=== PATIENT | female | born 1995 | race Caucasian/White ===

== ENCOUNTER 2023-03-18 10:17 | Emergency (ER) | payer SELFPAY ==
[2023-03-18] VITALS (14 sets, daily range): BP systolic 108–140; BP diastolic 65–93; PULSE 68–98; RESP 11–20; O2SAT 97–100
--- NOTE | 2023-03-18 11:08 | ED.NAVMDI ---
HPI - Nausea/Vomiting/Diarrhea General Chief complaint: Nausea/Vomiting/Diarrhea Stated complaint: 12 weeks -vomiting 40 hours Time Seen by Provider: 03/18/23 10:30 Source: patient Mode of arrival: ambulatory Limitations: no limitations History of Present Illness HPI Narrative: Patient is a 28 y/o female who presents to the ED with c/o N/V. Patient reports having persistent nausea and vomiting for the last 36 hours. She states she is unable to keep down any food or drink. She feels very dehydrated and slightly dizzy/lightheaded, intermittent headaches. She is and currently 12 weeks gestation. She sees Viridiana Felix with [facility]. She has had confirmed IUP at 8 weeks. Patient denies any abdominal pain, vaginal bleeding, vision changes, diarrhea, constipation, dysuria, hematuria. Related Data Allergies Allergy/AdvReac Type Severity Reaction Status Date / Time No Known Allergies Allergy Verified 03/18/23 10:17 Review of Systems Review of Systems: CONSTITUTIONAL: Denies fever, chills, or sweats. EYES: Denies visual changes. CARDIOVASCULAR: Denies chest pain. RESPIRATORY: Denies dyspnea. GASTROINTESTINAL: See HPI. GENITOURINARY: Denies vaginal bleeding, dysuria or hematuria. SKIN: Denies rash or itching. MUSCULOSKELETAL: Denies back pain, joint pain, or myalgia. NEUROLOGIC: See HPI. All systems reviewed & are unremarkable except as noted in HPI and below Exam Narrative: GENERAL: Well appearing, obese with BMI of 32, non-toxic, in no acute distress. HEAD: Normocephalic, atraumatic. ENT: MMs dry. NECK: Supple. No adenopathy, no masses. RESPIRATORY: Airway patent, respirations nonlabored. Clear to auscultation bilaterally, no rales, rhonchi, wheezing. CARDIOVASCULAR: Regular rate and rhythm without murmurs, rubs, or gallops. Radial pulses 2+ and equal bilaterally. ABDOMINAL: Soft, no significant tenderness throughout abdomen, nondistended, no hepatosplenomegaly. Normoactive BS. MUSCULOSKELETAL: Moves all extremities. Strength/ROM intact without gross deformities. SKIN: Warm, dry, normal color. No rashes. NEURO: A&O X3. Speech clear. Cranial nerves II-XII grossly intact. Steady gait. No ataxic movements. PSYCHIATRIC: Appropriate mood and affect. Normal interaction. Course Vital Signs Vital signs: Vital Signs Pulse Rate 72 03/18/23 10:53 Blood Pressure 130/80 03/18/23 10:53 Pulse Rate 75 03/18/23 13:16 Respiratory Rate 16 03/18/23 13:16 Blood Pressure 108/72 03/18/23 13:00 Pulse Oximetry 100 03/18/23 13:16 MDM - Nausea/Vomiting/Diarrhea MDM Narrative Medical decision making narrative: Patient presented to ED with several day history of nausea, vomiting, currently 12 weeks gestation. No abdominal pain or vaginal bleeding. Vital stable. Afebrile. Bedside ultrasound utilized and visualized baby with active heart tones. CBC with minimal leukocytosis of 10.7, remainder of blood work unremarkable, normal electrolytes and kidney function. Urine appears infected with 3+ leuk esterase, 6-10 WBC, 4+ urine bacteria. Sent for culture. Patient updated on laboratory findings. She was given 2 L of fluid in the ED, as well as Reglan and dose of Ceftriaxone for UTI. She is feeling much better with supportive therapy. Able to tolerate p.o. intake. Recommended close follow-up with [employer] for further evaluation. Return precautions were discussed. Keflex sent to pharmacy. Medical Records Attestation: I reviewed the patient's medical records. Lab Data Attestation: I reviewed the patient's lab results. 03/18/23 11:08 03/18/23 11:08 Labs: Lab Results 03/18/23 Range/Units 11:08 WBC 10.7 H (4.5-10.0) K/mm3 RBC 4.80 (4.2-5.4) M/mm3 Hgb 14.7 (12.0-15.0) g/dL Hct 43.8 (37.0-47.0) % MCV 91.3 (80-100) fl MCH 30.6 (26-34) pg MCHC 33.6 (32-36) g/dl RDW 13.3 (11.5-14.5) % Plt Count 265 (150-375) k/mm3 MPV 9.5 (7.4-10.4) fl Im
[2023-03-18] MEDS: METOCLOPRAMIDE HCL INJ 10 MG/2 ML VIAL IV PUSH (11:15)
[2023-03-18] MEDS: SODIUM CHLORIDE 0.9% IV 1,000 ML 999 ML IV CONT ×2 (11:15→12:01)
[2023-03-18 11:26] LABS: Basophils Percent Auto 0.3 % (0.2-1.2); Eosinophils Percent Auto 0.2 % (0-4.4); Hematocrit 43.8 % (37.0-47.0); Hemoglobin 14.7 g/dL (12.0-15.0); Immature Granulocyte Absolute 0.05 K/mm3 (0.00-0.031); Immature Granulocyte Percent A 0.5 % (0-0.5); Lymphocytes Absolute Auto 1.57 K/mm3 (0.9-3.2); Lymphocytes Percent Auto 14.7 % (18.3-44.2); Mean Corpuscular HGB Conc 33.6 g/dl (32-36); Mean Corpuscular Hemoglobin 30.6 pg (26-34); Mean Corpuscular Volume 91.3 fl (80-100); Mean Platelet Volume 9.5 fl (7.4-10.4); Monocytes Absolute Auto 0.7 K/mm3 (0.1-0.6); Monocytes Percent Auto 6.6 % (2.6-8.5); Neutrophils Absolute Auto 8.3 K/mm3 (1.3-6.7); Neutrophils Percent Auto 77.7 % (45.5-73.1); Platelet Count Result 265 k/mm3 (150-375); Red Cell Distribution Width 13.3 % (11.5-14.5); White Blood Count 10.7 K/mm3 (4.5-10.0)
[2023-03-18 11:34] LABS: Alanine Aminotransferase 33 U/L (6-35); Albumin Level 4.4 g/dL (3.5-5.1); Alkaline Phosphatase 72 U/L (38-126); Anion Gap 9 mmol/L (8-16); Aspartate Amino Transferase 38 U/L (14-36); Bilirubin,Total 0.8 mg/dL (0.2-1.3); Blood Urea Nitrogen 7 mg/dL (7-17); Carbon Dioxide 22 mmol/L (22-30); Chloride 104 mmol/L (98-107); Estimated CRCL calculation 205 ml/min; Estimated Glomerular Filt Rate > 60; Glucose 90 mg/dL (65-110); Lipase 98 U/L (23-300); Potassium 4.1 mmol/L (3.4-5.0); Sodium 135 mmol/L (137-145)
[2023-03-18 11:35] LABS: Appearance Urine Cloudy (Clear); Bacteria Urine 4+ /hpf; Bilirubin Urine Negative (Negative); Blood Urine Negative (Negative); Color Urine Dark Yellow (Yellow); Glucose Urine UA Negative (Negative); Ketones Urine Trace mg/dL (Negative); Leukocyte Esterase Ur 3+ LEU/UL (Negative); Need Manual Microscopic Reviewed; Nitrate Urine Negative (Negative); Protein Urine Trace mg/dL (Negative); RBC Urine 0-2 /hpf (0-2); Specific Grav Ur 1.022 (1.001-1.035); Squamous Epithelial Cell Urine Many /hpf (Few); pH Urine 6.5 (5.0-9.0)
[2023-03-18 11:36] LABS: Add Urine Microscopic? YES
--- NOTE | 2023-03-18 12:01 | PC.NURSE ---
No cultures needed per LINDA garcia prior to antibiotics.
== END 2023-03-18 13:51 | disposition home or self-care (01) ==
PROVIDERS: Emergency Medicine; Emergency Provider Physician Assistant; PCP Advanced Practice Midwife
DX: O23.41 Unspecified infection of urinary tract in pregnancy, first trimester (principal); O21.9 Vomiting of pregnancy, unspecified; Z3A.12 12 weeks gestation of pregnancy
CPT/HCPCS: 36415; 80053; 81001; 83690; 85025; 87086; 87088; 96361; 96365; 96375; 99284; J0696; J2765; J7030

== ENCOUNTER 2023-03-19 21:50 | Emergency (ER) | payer SELFPAY ==
[2023-03-19 21:54] VITALS: BP 113/59; PULSE 66; RESP 16; TEMP 36.6; O2SAT 100
--- NOTE | 2023-03-19 23:44 | ED.NAVMDI ---
HPI - Nausea/Vomiting/Diarrhea General Chief complaint: Nausea/Vomiting/Diarrhea Stated complaint: vomiting Time Seen by Provider: 03/19/23 23:31 History of Present Illness HPI Narrative: 28-year-old female, who is currently 12 weeks gestation reports for evaluation of nausea and vomiting x3 days. Patient was evaluated in the emergency department yesterday for the same symptoms, diagnosed with a UTI, she received 2 L of fluids, Reglan and Rocephin with improvement of symptoms and discharged home with Keflex and Reglan. She reports today due to return of nausea and vomiting. Reports 3 episodes of vomiting today. She denies abdominal pain, urinary complaints, vaginal bleeding, fever. She reports taking 1 dose of Keflex this morning, however has not been able to take anything p.o. due to nausea. Patient states she called her MIGRATION AGENT today who sent in Zofran for her in addition to the Reglan she was discharged with yesterday. Patient reports taking Zofran and Reglan without improvement nausea. Her OBGYN with Viridiana Felix at [facility]. She had a confirmed IUP at 8 weeks. Reports her next ultrasound discussed in 3 days. Related Data Allergies Allergy/AdvReac Type Severity Reaction Status Date / Time No Known Allergies Allergy Verified 03/18/23 10:17 Review of Systems Review of Systems: CONSTITUTIONAL: Denies fever, chills EYES: Denies visual changes, redness, or discharge. ENT: Denies rhinorrhea, congestion, sore throat, or otalgia. CARDIOVASCULAR: Denies chest pain, palpitations, or edema. RESPIRATORY: Denies cough or dyspnea. GASTROINTESTINAL: See HPI GENITOURINARY: Denies dysuria or hematuria. SKIN: Denies rash or itching. MUSCULOSKELETAL: Denies back pain, joint pain, or myalgia. NEUROLOGIC: Denies headache, numbness, dizziness, or weakness. PSYCHIATRIC: Denies anxiety or depression. Exam Narrative: GENERAL: Well-appearing, in no acute distress. HEAD: Normocephalic NECK: Supple. CHEST: No respiratory distress. Clear to auscultation, no adventitious breath sounds. HEART: Regular rate and rhythm. No murmur heard. Normal peripheral pulses. ABDOMEN: Soft, nontender, normal active bowel sounds. No guarding or rigidity. No CVA tenderness EXTREMITIES: Normal range of motion. No edema. SKIN: Warm, dry, no rash. NEURO: No focal deficits. Alert and oriented x3. PSYCH: Normal mood and affect. Course Vital Signs Vital signs: Vital Signs Temperature 98 F 03/19/23 21:54 Pulse Rate 66 03/19/23 21:54 Respiratory Rate 16 03/19/23 21:54 Blood Pressure 113/59 L 03/19/23 21:54 Pulse Oximetry 100 03/19/23 21:54 Oxygen Delivery Room Air 03/19/23 21:54 Temperature 98 F 03/19/23 21:54 Pulse Rate 78 03/20/23 02:01 Respiratory Rate 16 03/20/23 02:01 Blood Pressure 122/79 03/20/23 02:01 Pulse Oximetry 100 03/20/23 02:01 Oxygen Delivery Room Air 03/19/23 21:54 MDM - Nausea/Vomiting/Diarrhea MDM Narrative Medical decision making narrative: 28-year-old female, G1, P0 who is currently 12 weeks gestation reports for evaluation of nausea and vomiting for 3 days. Patient was seen in the ED yesterday, diagnosed with a UTI, given fluids, ABX and nausea control with improvement of symptoms. She reports today for return of symptoms. On exam, abdomen is soft and nontender, no CVA tenderness. No vaginal bleeding. Vitals are stable. Bedside ultrasound shows IUP with good and heart movement. CBC significant for leukocytosis of 13.8 which may be secondary to UTI vs. . Bicarb is normal, normal renal function and electrolytes. UA with 3+ ketones, 2+ leuk esterase and 6-10 WBCs. Pt received 2 L of fluids, Reglan and Zofran in the ED with improvement of symptoms. 1 dose of Rocephin administered as well as she has not been able to tolerate her p.o. Keflex dosing today for tx of UTI. Plan to discharge patient home and continue outpatient Keflex and to take Reglan and Zofran PRN. She has an a
[2023-03-19 23:52] LABS: Basophils Absolute Auto 0.1 K/mm3 (0.0-0.1); Basophils Percent Auto 0.4 % (0.2-1.2); Eosinophils Percent Auto 0.3 % (0-4.4); Hematocrit 41.5 % (37.0-47.0); Hemoglobin 14.1 g/dL (12.0-15.0); Immature Granulocyte Absolute 0.05 K/mm3 (0.00-0.031); Immature Granulocyte Percent A 0.4 % (0-0.5); Lymphocytes Absolute Auto 2.36 K/mm3 (0.9-3.2); Lymphocytes Percent Auto 17.1 % (18.3-44.2); Mean Corpuscular Hemoglobin 30.4 pg (26-34); Mean Corpuscular Volume 89.4 fl (80-100); Mean Platelet Volume 9.3 fl (7.4-10.4); Monocytes Absolute Auto 0.9 K/mm3 (0.1-0.6); Monocytes Percent Auto 6.5 % (2.6-8.5); Neutrophils Absolute Auto 10.4 K/mm3 (1.3-6.7); Neutrophils Percent Auto 75.3 % (45.5-73.1); Platelet Count Result 261 k/mm3 (150-375); Red Blood Count 4.64 M/mm3 (4.2-5.4); White Blood Count 13.8 K/mm3 (4.5-10.0)
[2023-03-19] MEDS: METOCLOPRAMIDE HCL INJ 10 MG/2 ML VIAL IV PUSH (23:54)
[2023-03-19] MEDS: SODIUM CHLORIDE 0.9% IV 1,000 ML 999 ML IV CONT (23:54)
[2023-03-19 23:57] LABS: Appearance Urine Clear (Clear); Bacteria Urine None Seen /hpf; Bilirubin Urine Negative (Negative); Blood Urine Negative (Negative); Color Urine Yellow (Yellow); Glucose Urine UA Negative (Negative); Ketones Urine 3+ mg/dL (Negative); Leukocyte Esterase Ur 2+ LEU/UL (Negative); Nitrate Urine Negative (Negative); Non Pathogenic Casts 0-2; Protein Urine Negative (Negative); RBC Urine 0-2 /hpf (0-2); Specific Grav Ur 1.013 (1.001-1.035); Squamous Epithelial Cell Urine Occasional /hpf (Few)
[2023-03-19 23:59] LABS: Add Urine Microscopic? YES
[2023-03-20 00:03] VITALS: BP 122/105; PULSE 88; RESP 16; O2SAT 100
[2023-03-20 00:05] LABS: Alanine Aminotransferase 40 U/L (6-35); Albumin Level 4.1 g/dL (3.5-5.1); Alkaline Phosphatase 78 U/L (38-126); Anion Gap 6 mmol/L (8-16); Aspartate Amino Transferase 30 U/L (14-36); Bilirubin,Total 0.7 mg/dL (0.2-1.3); Blood Urea Nitrogen 4 mg/dL (7-17); Calcium 9.1 mg/dL (8.4-10.2); Carbon Dioxide 26 mmol/L (22-30); Chloride 102 mmol/L (98-107); Estimated CRCL calculation 205 ml/min; Estimated Glomerular Filt Rate > 60; Glucose 91 mg/dL (65-110); Lipase 62 U/L (23-300); Potassium 3.9 mmol/L (3.4-5.0); Sodium 134 mmol/L (137-145)
[2023-03-20 00:31] VITALS: BP 135/84; PULSE 88; RESP 14; O2SAT 100
[2023-03-20] MEDS: ONDANSETRON INJ 4 MG/2 ML VIAL IV PUSH (00:40)
--- NOTE | 2023-03-20 00:51 | PC.NURSE ---
Pt has had one episode of vomiting during her ER visit. States she feels better at this time.
[2023-03-20 01:01] VITALS: BP 118/61; PULSE 68; RESP 16; O2SAT 100
[2023-03-20] MEDS: SODIUM CHLORIDE 0.9% IV 1,000 ML 999 ML IV CONT (01:13)
[2023-03-20 01:57] VITALS: BP 118/74; PULSE 84; RESP 14; O2SAT 100
[2023-03-20 02:01] VITALS: BP 122/79; PULSE 78; RESP 16; O2SAT 100
== END 2023-03-20 02:16 | disposition home or self-care (01) ==
PROVIDERS: Emergency Medicine; Emergency Provider Physician Assistant; PCP Advanced Practice Midwife
DX: O21.9 Vomiting of pregnancy, unspecified (principal); N39.0 Urinary tract infection, site not specified; O23.41 Unspecified infection of urinary tract in pregnancy, first trimester; Z3A.12 12 weeks gestation of pregnancy
CPT/HCPCS: 36415; 80053; 81001; 83690; 85025; 87086; 96361; 96365; 96375; 99284; J0696; J2405; J2765; J7030

== ENCOUNTER 2023-03-29 14:24 | Emergency (ER) | payer SELFPAY ==
[2023-03-29 14:34] VITALS: PULSE 75; RESP 16; TEMP 37; O2SAT 100
[2023-03-29 14:51] LABS: Basophils Percent Auto 0.3 % (0.2-1.2); Eosinophils Percent Auto 0.2 % (0-4.4); Hematocrit 41.5 % (37.0-47.0); Hemoglobin 14.2 g/dL (12.0-15.0); Immature Granulocyte Absolute 0.03 K/mm3 (0.00-0.031); Immature Granulocyte Percent A 0.3 % (0-0.5); Lymphocytes Absolute Auto 1.88 K/mm3 (0.9-3.2); Lymphocytes Percent Auto 16.8 % (18.3-44.2); Mean Corpuscular HGB Conc 34.2 g/dl (32-36); Mean Corpuscular Hemoglobin 30.5 pg (26-34); Mean Corpuscular Volume 89.2 fl (80-100); Mean Platelet Volume 9.2 fl (7.4-10.4); Monocytes Absolute Auto 0.8 K/mm3 (0.1-0.6); Monocytes Percent Auto 6.7 % (2.6-8.5); Neutrophils Absolute Auto 8.5 K/mm3 (1.3-6.7); Neutrophils Percent Auto 75.7 % (45.5-73.1); Platelet Count Result 268 k/mm3 (150-375); Red Blood Count 4.65 M/mm3 (4.2-5.4); White Blood Count 11.2 K/mm3 (4.5-10.0)
[2023-03-29 15:01] LABS: Alanine Aminotransferase 35 U/L (6-35); Albumin Level 4.4 g/dL (3.5-5.1); Alkaline Phosphatase 89 U/L (38-126); Anion Gap 8 mmol/L (8-16); Aspartate Amino Transferase 34 U/L (14-36); Bilirubin,Total 0.9 mg/dL (0.2-1.3); Blood Urea Nitrogen 9 mg/dL (7-17); Carbon Dioxide 25 mmol/L (22-30); Chloride 101 mmol/L (98-107); Estimated CRCL calculation 163 ml/min; Estimated Glomerular Filt Rate > 60; Glucose 83 mg/dL (65-110); Potassium 4.1 mmol/L (3.4-5.0); Sodium 134 mmol/L (137-145)
[2023-03-29 15:07] LABS: Add Urine Microscopic? YES; Appearance Urine Clear (Clear); Bacteria Urine 2+ /hpf; Bilirubin Urine 1+ (Negative); Blood Urine Negative (Negative); Color Urine Dark Yellow (Yellow); Glucose Urine UA Negative (Negative); Ketones Urine 3+ mg/dL (Negative); Leukocyte Esterase Ur 1+ LEU/UL (Negative); Need Manual Microscopic Reviewed; Nitrate Urine Negative (Negative); Protein Urine Trace mg/dL (Negative); RBC Urine 0-2 /hpf (0-2); Specific Grav Ur 1.032 (1.001-1.035); Squamous Epithelial Cell Urine Few /hpf (Few); pH Urine 5.5 (5.0-9.0)
--- NOTE | 2023-03-29 16:32 | ED.ABDPAIN ---
HPI - Abdominal Pain General Chief Complaint: Abdominal Pain Stated Complaint: constipation N/ Time Seen by Provider: 03/29/23 16:19 History of Present Illness HPI narrative: Please this 28-year-old female patient who is 13 weeks gestation, 1 para 0, who presents to the emergency room with complaints of being constipated without a bowel movement for the past 4 days. Patient states she has had some intermittent nausea and vomiting as well. She has been taking her Zofran and that has relieved her nausea, However she still cannot produce a bowel movement. Patient use a glycerin suppository last night without any relief of her symptoms. She denies any fevers, diarrhea, chest pain, dyspnea and no vaginal drainage or discharge. She was treated 1 week ago for a UTI with cephalexin and she finished her entire dose. Related Data Allergies Allergy/AdvReac Type Severity Reaction Status Date / Time No Known Allergies Allergy Verified 03/29/23 16:29 Review of Systems Review of Systems: A full 12 point review systems was completed and is otherwise negative w All systems reviewed & are unremarkable except as noted in HPI and below Exam Const: General: healthy appearing, no acute distress and alert Nutritional Appearance: well nourished Orientation/consciousness: patient oriented x3 Limitations: no limitations HENMT: Head: normal to inspection Eyes: Conjunctivae: conjunctivae normal Pupils: Equal, round and reactive pupils present EOM: EOMs intact bilaterally Neck: Neck: normal visual inspection Chest: Chest palpation & inspection: normal inspection of the chest and no tenderness Resp: Effort & Inspection: normal respiratory effort, not labored, no retractions and not tachypneic Cardio: Rate: regular rate Rhythm: regular rhythm Heart sounds: no murmurs GI: Inspection: non-distended GI Palp: Yes Soft to palpation, No Tenderness to palpation present (GI) and No Guarding due to palpation present (GI) Back/Spine/Pelvis: Back: no CVA tenderness Skin: General skin exam: normal color Rashes: no rashes Wounds: no wounds Neuro: General: patient oriented x3, moves all extremities, no meningeal signs and no focal motor deficits Cranial nerves: Yes Nystagmus not present Speech: normal speech Gait exam (Neuro): Normal gait present Extrem: General: normal to inspection, no clubbing, cyanosis or edema and no pedal edema Other: Patient freely and equally moves all extremities well without deficit. Psych: Mental Status: mental status grossly normal Course Course Emergency Course: Differential: small-bowel obstruction, constipation, UTI, gastroenteritis VSS Labs: significant for elevated white blood cell count of 11.2 without left shift. In addition patient has a noted UTI with 1+ leuk esterase, 11-20 wbc's, 2+ bacteria, 1+ bili and 3+ ketones. To collect suppository administered as well as Macrobid for noted UTI. Patient is also given 1 L of IV fluids secondary to ketonuria. Patient with a new urge to defecate which she states she has not had for the past few days. She is advised that she can take MiraLax at home and I encouraged her to take daily Colace as long as she is taking her vitamins with iron. Overall she reports feeling improvement in her condition and is ready for discharge. Vital Signs Vital signs: Vital Signs Temperature 98.6 F 03/29/23 14:34 Pulse Rate 75 03/29/23 14:34 Respiratory Rate 16 03/29/23 14:34 Pulse Oximetry 100 03/29/23 14:34 Temperature 98.6 F 03/29/23 14:34 Pulse Rate 74 03/29/23 18:00 Respiratory Rate 13 03/29/23 18:00 Blood Pressure 105/72 03/29/23 18:00 Pulse Oximetry 100 03/29/23 18:00 MDM - Abdominal Pain MDM Narrative Medical decision making narrative: See ED course Differential Diagnosis Differential diagnosis: Likely abdominal pain, constipation, gastroenteritis and other ( nausea/vomiting) Lab Data
[2023-03-29] MEDS: SODIUM CHLORIDE 0.9% IV 1,000 ML 999 ML IV CONT (17:40)
[2023-03-29] MEDS: ONDANSETRON INJ 4 MG/2 ML VIAL IV PUSH (17:41)
[2023-03-29] MEDS: BISACODYL 10 MG SUPPOSITORY RECTAL (17:41)
[2023-03-29 18:00] VITALS: BP 105/72; PULSE 74; RESP 13; O2SAT 100
[2023-03-29 18:50] VITALS: PULSE 69; RESP 14; O2SAT 100
[2023-03-29 19:00] VITALS: BP 116/76; PULSE 61; RESP 17; O2SAT 100
== END 2023-03-29 19:04 | disposition home or self-care (01) ==
PROVIDERS: Emergency Medicine; Emergency Provider Nurse Practitioner Adult Health; PCP Nurse Practitioner Family
DX: O23.41 Unspecified infection of urinary tract in pregnancy, first trimester (principal); N39.0 Urinary tract infection, site not specified; Z3A.13 13 weeks gestation of pregnancy; K59.03 Drug induced constipation
CPT/HCPCS: 36415; 80053; 81001; 84702; 85025; 85461; 86850; 86900; 86901; 87086; 96361; 96374; 99284; A9270; J2405; J7030

== ENCOUNTER 2023-09-13 16:15 | Outpatient (RCR) | payer BC, SELFPAY ==
[2023-08-30 16:16] VITALS: BP 125/78; PULSE 88
--- NOTE | ~2023-09-13 | US_ITS ---
US OB limited w BPP DATE: 09/13/2023 17:37 INDICATION: History of low amniotic fluid volume TECHNIQUE: Real-time imaging and Doppler analysis COMPARISON: None FINDINGS: Live haines intrauterine gestation, fetus in vertex presentation. Anterior placenta, wit hout evidence of previa. heart rate 133 bpm. Amniotic fluid index measures 9.2 cm; 5th percentile АЛЕКСАНДР is 7.5 cm, 95th percentile АЛЕКСАНДР is 24.4 cm. BIOPHYSICAL PROFILE reported by multi care technician: breathin out of 2 movement: 2 out of 2 tone: 2 out of 2 Amniotic fluid pocket: 2 out of 2 Total score: 8 out of 8 IMPRESSION: Normal biophysical profile score of 8 out of 8 Amniotic fluid index measures 9.2 cm; 15 sagittal АЛЕКСАНДР is 7.5 cm. Reviewed, dictated and finalized at [facility] Reviewed, dictated and finalized at [facility]. [facility] [employer]SULT[facility]
[2023-09-13 17:59] VITALS: BP 116/71; PULSE 82
== END 2023-11-28 23:59 | disposition home or self-care (01) ==
LOC: ANHOBOP 16:15
PROVIDERS: PCP Nurse Practitioner Family; Visit Provider Obstetrics & Gynecology
DX: O36.8130 Decreased fetal movements, third trimester, not applicable or unspecified (principal); Z3A.35 35 weeks gestation of pregnancy
CPT/HCPCS: 59025; 76815; 76819

== ENCOUNTER 2023-09-17 14:01 | Inpatient (IN) | payer BC, SELFPAY ==
[2023-09-17] VITALS (117 sets, daily range): BP systolic 79–138; BP diastolic 52–91; PULSE 39–107; TEMP 36.1–37.2; O2SAT 96–100; BMI 34.2
--- NOTE | 2023-09-17 14:01 | LDADM ---
This patient, Sammie Nair, was admitted to Labor/Delivery/Recovery 106 on 09/17/23 at 14:01. Plans for labor, pain management and were discussed with patient. Patient/family oriented to hospital policies and general routines including ID bracelet, bed and alarms, visiting hours, pain management, procedures, bathroom and other care routines, personal items, smoking policy, room service/diet and guest tray routines, security routines, and visiting hours. Patient/Family are encouraged to report perceived risks to care and to ask questions if they do not understand what they are told or what they should do. See OBIX for further documentation.
[2023-09-17 14:46] LABS: Basophils Percent Auto 0.1 % (0.2-1.2); Eosinophils Absolute Auto 0.1 K/mm3 (0-0.3); Eosinophils Percent Auto 0.4 % (0-4.4); Hematocrit 38.9 % (37.0-47.0); Hemoglobin 12.9 g/dL (12.0-15.0); Immature Granulocyte Absolute 0.09 K/mm3 (0.00-0.031); Immature Granulocyte Percent A 0.7 % (0-0.5); Lymphocytes Absolute Auto 2.11 K/mm3 (0.9-3.2); Lymphocytes Percent Auto 15.5 % (18.3-44.2); Mean Corpuscular HGB Conc 33.2 g/dl (32-36); Mean Corpuscular Hemoglobin 31.2 pg (26-34); Monocytes Absolute Auto 1.1 K/mm3 (0.1-0.6); Monocytes Percent Auto 8.1 % (2.6-8.5); Neutrophils Absolute Auto 10.2 K/mm3 (1.3-6.7); Neutrophils Percent Auto 75.2 % (45.5-73.1); Platelet Count Result 260 k/mm3 (150-375); Red Blood Count 4.14 M/mm3 (4.2-5.4); Red Cell Distribution Width 13.5 % (11.5-14.5); White Blood Count 13.6 K/mm3 (4.5-10.0)
[2023-09-17] MEDS: LACTATED RINGERS 1,000 ML 125 ML IV CONT (15:19)
[2023-09-17] MEDS: AMPICILLIN 2 GM/NS 100 ML 2 GM/100 ML BAG IVPB (15:22)
[2023-09-17] MEDS: miSOPROStol 25 MCG TABLET 50 MCG BY MOUTH (15:25)
--- NOTE | 2023-09-17 19:48 | WPDANESEPP ---
Anes - Eval Pre Procedure Procedure: Labor epidural Date/Time: 09/17/23 19:48 Pre Op Diagnosis: IOL Patient Data Age: 28 Gender: F Height: 1.73 m Weight: 102 kg Last Vital Signs Temp 37.2 C 09/17/23 18:26 Pulse 103 H 09/17/23 19:46 BP 117/91 H 09/17/23 19:46 Pulse Ox 98 09/17/23 19:44 Allergies Allergy/AdvReac Type Severity Reaction Status Date / Time No Known Allergies Allergy Verified 09/10/23 15:25 Home Medications Medication Instructions Recorded Confirmed Type vit no.95-ferrous 1 tablet PO DAILY 08/30/23 09/13/23 History fumarate 28 mg-folic acid 800 mcg tablet () Laboratory Tests 09/17/23 14:19 WBC 13.6 H K/mm3 (4.5-10.0) RBC 4.14 L M/mm3 (4.2-5.4) Hgb 12.9 g/dL (12.0-15.0) Hct 38.9 % (37.0-47.0) MCV 94.0 fl (80-100) MCH 31.2 pg (26-34) MCHC 33.2 g/dl (32-36) RDW 13.5 % (11.5-14.5) Plt Count 260 k/mm3 (150-375) MPV 10.0 fl (7.4-10.4) Immature Gran % (Auto) 0.7 H % (0-0.5) Neut % (Auto) 75.2 H % (45.5-73.1) Lymph % (Auto) 15.5 L % (18.3-44.2) [place] % (Auto) 8.1 % (2.6-8.5) Eos % (Auto) 0.4 % (0-4.4) Baso % (Auto) 0.1 L % (0.2-1.2) Lymph # (Auto) 2.11 K/mm3 (0.9-3.2) [place] # (Auto) 1.1 H K/mm3 (0.1-0.6) Eos # (Auto) 0.1 K/mm3 (0-0.3) Baso # (Auto) 0.0 K/mm3 (0.0-0.1) Abs Immat Gran (auto) 0.09 H K/mm3 (0.00-0.031) Absolute Neuts (auto) 10.2 H K/mm3 (1.3-6.7) Absolute Nucleated RBC 0.0 K/mm3 (0.0-0.012) Nucleated RBC % 0.0 % (0.0-0.2) RPR Pending Blood Type O Positive Antibody Screen Negative Patient hx anesthesia problems: none Family hx anesthesia problems: none Results Review: All pre-operative results and documents have been reviewed as part of the pre-operative evaluation. [facility] Past Medical History Medical History (Updated 09/17/23 @ 19:49 by Chuyita Tran CRNA) IUGR (intrauterine growth restriction) Family History Family History Sibling Breast cancer Social History Social History Smoking status: Never smoker Substance use: never Lack of Transportation: No Lack of Food: Never True Current Housing: I Have Housing Concerned About Future Housing: No Difficulty Paying Gas/Electric Bills: No Difficulty Paying for Meds: No Currently Unemployed: No Education: Associate Degree Difficulty w/ Childcare or Family Care: No Spiritual care concerns: No Exam Day of Procedure 09/17/23 19:48 Patient weight: obese Heart: regular rate and rhythm Lungs: normal air movement Airway: Mallampati scale Neurological: alert and oriented
[2023-09-17] MEDS: AMPICILLIN 1 GM/NS 50 ML 1 GM/50 ML BAG IVPB (20:08)
[2023-09-17] MEDS: miSOPROStol 25 MCG TABLET 50 MCG (20:09)
[2023-09-18] VITALS (240 sets, daily range): BP systolic 77–142; BP diastolic 35–127; PULSE 54–289; RESP 18; TEMP 36.2–37.1; O2SAT 94–100
[2023-09-18] MEDS: AMPICILLIN 1 GM/NS 50 ML 1 GM/50 ML BAG IVPB ×5 (00:01→16:34)
[2023-09-18] MEDS: miSOPROStol 25 MCG TABLET 50 MCG PO (00:38)
[2023-09-18] MEDS: OXYTOCIN 30 UNITS/NS 500 ML 30 UNITS/500 ML BAG IV CONT (04:28)
[2023-09-18] MEDS: ONDANSETRON INJ 4 MG/2 ML VIAL IV PUSH ×2 (08:27→15:56)
[2023-09-18] MEDS: LACTATED RINGERS 1,000 ML 125 ML IV CONT (10:12)
[2023-09-18 10:49] LABS: Rapid Plasma Reagin Non-Reactive (NonReactive)
--- NOTE | 2023-09-18 12:26 | PM.IMHP ---
H&P: HPI History of Present Illness Date/Time: 09/18/23 08:30 Chief Complaint: FGR with abnormal dopplers Narrative: Patient presents for induction of labor at 38 weeks indicated for growth restriction and elevated UADs. NST/BPPs have been reassuring. has otherwise been uncomplicated. S/p cytotec x3. SVE 3.5/60/-3, now on pitocin with strong contractions per patient. Patient coping well, and sister at bedside. Review of Systems Review of Systems: All systems reviewed & are unremarkable except as noted in HPI and below PMFSH Past Medical History Medical History (Updated 09/18/23 @ 12:32 by Tanner Arrieat MD) IUGR (intrauterine growth restriction) Family History Family History Sibling Breast cancer Social History Social History Smoking status: Never smoker Substance use: never Lack of Transportation: No Lack of Food: Never True Current Housing: I Have Housing Concerned About Future Housing: No Difficulty Paying Gas/Electric Bills: No Difficulty Paying for Meds: No Currently Unemployed: No Education: Associate Degree Difficulty w/ Childcare or Family Care: No Spiritual care concerns: No Meds Home Medications and Allergies Home Medications Medication Instructions Recorded Confirmed Type vit no.95-ferrous 1 tablet PO DAILY 08/30/23 09/13/23 History fumarate 28 mg-folic acid 800 mcg tablet () Allergies Allergy/AdvReac Type Severity Reaction Status Date / Time No Known Allergies Allergy Verified 09/10/23 15:25 Vital Signs Vital Signs - 24 hr 09/17/23 15:01 09/17/23 15:16 09/17/23 15:31 Temperature Pulse Rate 91 86 88 Respiratory Rate Blood Pressure 115/63 115/68 120/69 Pulse Oximetry 09/17/23 15:46 09/17/23 16:01 09/17/23 16:16 Temperature Pulse Rate 91 84 87 Respiratory Rate Blood Pressure 113/68 122/80 129/77 Pulse Oximetry 09/17/23 16:31 09/17/23 16:33 09/17/23 16:34 Temperature Pulse Rate 88 88 Respiratory Rate Blood Pressure 79/61 L 117/73 Pulse Oximetry 98 09/17/23 16:39 09/17/23 16:44 09/17/23 16:46 Temperature Pulse Rate 90 Respiratory Rate Blood Pressure 127/77 Pulse Oximetry 98 97 09/17/23 16:49 09/17/23 16:54 09/17/23 16:59 Temperature Pulse Rate Respiratory Rate Blood Pressure Pulse Oximetry 98 98 98 09/17/23 17:01 09/17/23 17:04 09/17/23 17:09 Temperature Pulse Rate 83 Respiratory Rate Blood Pressure 127/73 Pulse Oximetry 99 98 09/17/23 17:14 09/17/23 17:16 09/17/23 17:19 Temperature 97.5 F L Pulse Rate 87 Respiratory Rate Blood Pressure 122/69 Pulse Oximetry 98 97 09/17/23 17:24 09/17/23 17:29 09/17/23 17:31 Temperature Pulse Rate 81 Respiratory Rate Blood Pressure 119/60 Pulse Oximetry 99 98 98 09/17/23 17:36 09/17/23 17:41 09/17/23 17:45 Temperature Pulse Rate Respiratory Rate Blood Pressure Pulse Oximetry 97 97 99 09/17/23 17:46 09/17/23 17:50 09/17/23 17:55 Temperature Pulse Rate 81 Respiratory Rate Blood Pressure 123/77 Pulse Oximetry 98 99 09/17/23 18:00 09/17/23 18:01 09/17/23 18:05 Temperature Pulse Rate 76 Respiratory Rate Blood Pressure 121/71 Pulse Oximetry 98 98 09/17/23 18:10 09/17/23 18:15 09/17/23 18:16 Temperature Pulse Rate 83 Respiratory Rate Blood Pressure 121/65 Pulse Oximetry 99 98 09/17/23 18:20 09/17/23 18:25 09/17/23 18:30 Temperature Pulse Rate Respiratory Rate Blood Pressure Pulse Oximetry 99 97 98 09/17/23 18:26 09/17/23 18:31 09/17/23 18:35 Temperature 98.9 F Pulse Rate 85 Respiratory Rate Blood Pressure 111/55 L Pulse Oximetry 98 09/17/23 18:40 09/17/23 18:45 09/17/23 18:46 Temperature Pulse Rate 85 Re
[2023-09-18] MEDS: OXYTOCIN 30 UNITS/NS 500 ML 30 UNITS/500 ML BAG 125 UNITS IV CONT (17:36)
--- NOTE | 2023-09-18 17:38 | P.PCNOB_ITS ---
OB - Vaginal Delivery Note Procedure Delivery date: 09/18/23 Events: Intrauterine Growth Restriction (IUGR) Induction method: Per Misoprostol Protocol Delivery augmentation: Rupture of Membranes and Pitocin Delivery monitor: External FHT and Internal Uterine Route of delivery: Laceration Description: Perineal - 2nd Degree Delivery repair: vicryl Specimen: Yes (placenta to pathology) Quantitative Blood Loss (ml): 150 Anesthesia type: Epidural Disposition: Floor Complications: No immediate complications [place] Baby Date of : 09/18/23 Time of : 17:05 Weeks of gestation at delivery: 38 Weight (pounds): 5 Weight (ounces): 9 presentation: vertex position: Left Occiput Anterior Placenta delivery description: Spontaneous
[2023-09-18] MEDS: BENZOCAINE 20% AER SPR (*SP) 56 GM CAN 1 SPRAY TOPICAL (19:53)
[2023-09-18] MEDS: WITCH HAZEL 40 PADS 1 PAD TOPICAL (19:53)
--- NOTE | 2023-09-18 20:17 | PC.NURSE ---
Patient transferred to post room #280 via ( W/C ). Support person present. Oriented to unit, room, information board, rooming in, admission packet and security measures. Patient verbalizes understanding.
[2023-09-19 01:06] VITALS: BP 123/81; PULSE 94; RESP 18; TEMP 36.7; O2SAT 98
--- NOTE | 2023-09-19 05:36 | PM.OBPNVD ---
OB - PN: Subj Subjective Date/time seen: 09/19/23 05:36 Interval history: pp day 1 doing well work on pain management baby doing well, breast feeding OB - PN: Obj Data Labs 09/17/23 14:19 Labs: Laboratory Results - last 24 hr 09/17/23 14:19 RPR Non-reactive OB - PN A/P Plan day: 1 Plan: routine care Time Spent With Patient Time: Total time spent is greater than 50% in coordination of care (as documented) at patient's floor/unit and/or counseling patient: Review of Systems Review of Systems: All systems reviewed & are unremarkable except as noted in HPI and below Exam Const: General: cooperative and healthy appearing Chest: Chest palpation & inspection: normal inspection of the chest Resp: Effort & Inspection: normal respiratory effort Cardio: Rate: regular rate Rhythm: regular rhythm GI: Other: soft Back/Spine/Pelvis: Back: no CVA tenderness Skin: General skin exam: normal color Extrem: Right lower extremity: normal to inspection Left lower extremity: normal to inspection Psych: Appearance: grossly normal
[2023-09-19 05:55] LABS: Hematocrit 36.4 % (37.0-47.0); Hemoglobin 11.9 g/dL (12.0-15.0)
[2023-09-19 07:50] VITALS: BP 120/70; PULSE 80; RESP 16; TEMP 36.9; O2SAT 98
[2023-09-19] MEDS: IBUPROFEN 600 MG TABLET PO (11:44)
[2023-09-19] MEDS: MULTIVIT/MIN/PREN/FOL AC/IRON TABLET 1 TAB PO (11:44)
[2023-09-19 12:39] VITALS: BP 121/65; PULSE 95; RESP 16; TEMP 36.9; O2SAT 97
--- NOTE | 2023-09-19 15:45 | PC.NURSE ---
[id number] Introductions were made, then consulted with patient to assess needs related to . Mother led the conversation with her?plans to feed?her infant, the?experience so far as a nipple shield was introduced at infant's first feeding. Mother believes her nipple is too big for her infant. The day Primary RN has brought a pump into the room with mother as she has used the nipple shield more than 3 times; however, patient has not used the pump. Encouraged understanding of the benefits of skin to skin (demonstrating unwrapping infant and placing upright on her chest), stimulating with massage touch, changing positions to encourage wakefulness, how to watch for early feeding cues, responsive feeding, feeding on demand (aiming for 8-12 times in 24 hours, about every 2-3 hours), milk production, hand expression, building/maintaining a milk supply, duration of feeding, signs of adequate intake/output and how to record on the feeding sheet. Mother works well with her with encouragement, education and gently massages and compresses breast to encourage more milk swallows with her infant. Reviewed positioning and ear, shoulder, hip alignment, supporting the breast to facilitate a deep latch with a sandwich hold, asymmetrical latch (off-center), leading with the chin with a big, open, wide gape and body close to mother. Infant latched optimally to the right breast in football position. Education given to the mother of how to visualize the suckling (with good rocking jaw motion), swallows (dropping of the lower jaw) and how to listen for drinking at the breast (the ka sound). Infant was able to maintain latch without pain to mother protecting the nipple with optimal positioning and latching. Reviewed comfort measures of healing with a warm, wet washcloth to rinse breast, then leave open to air-dry, good handwashing when or touching the breast/nipples to prevent infection. After infant self detached, infant was brought upright on mothers chest, then latched optimally to the left breast using the football position. Mother denied discomfort. We reviewed that if mother has difficulty latching infant, continues to use the nipple shield, then to protect her milk supply with hand expression and electric pumping. Mother voiced understanding of skin to skin, stimulating with massage touch, responsive feedings, hand expressed colostrum, talking to infant to encourage if it has been 2 -2.5 hours since the start of the last , to call if does not latch, or if there is discomfort with . Resources used for education were facilitated with the tool, mom and baby guide, Inpatient/outpatient resources provided with feeding sheet, name written on the communication board, and the mom/baby guide. Parents voiced understanding of information, demonstrated learning and will call if there is a request for assistance. Reported to the Primary RN. [id number] Purposefully rounded to assess needs as patient called out. Maternal mother states the RN briefly assisted to the breast. Mother and infant are demonstrating effective on the right breast using the football hold supporting the breast with the sandwich hold. Mother has a great support system of a mother and 4 sisters who have all breastfed. is at the breast demonstrating dropping of the lower jaw with great suck/swallow ratios and we can hear a ka sound with the drop of the jaw about every 2-3 sucks. Mother is encouraged to feed her infant on demand aiming for every 2 hours while awake since had been nursing with a nipple shield earlier.
[2023-09-19 23:00] VITALS: BP 99/62; PULSE 83; RESP 16; TEMP 36.8; O2SAT 97
[2023-09-20 08:00] VITALS: PULSE 96; RESP 16; O2SAT 99
[2023-09-20 08:15] VITALS: BP 111/72; PULSE 96; RESP 16; TEMP 37; O2SAT 99
--- NOTE | 2023-09-20 10:00 | PM.OBDSVD ---
DS: Admitting Diagnosis Discharge Date 09/20/23 Admitting Diagnosis Induction of labor, growth restriction DS: Discharge Diagnosis Discharge Diagnosis (1) (spontaneous vaginal delivery): Code(s): O80 - Encounter for full-term uncomplicated delivery Status: Acute (2) IUGR (intrauterine growth restriction): Status: Acute OB - DS: Summary OB Procedures : None OB Procedures Intrapartum: Spontaneous Vag Delivery OB Procedures: : None Peripartum Data Laceration Description: Perineal - 2nd Degree Time Spent with Patient Time attestation: Total time spent providing and/or coordinating discharge services: DS: Data Data Completed and Pending Pending studies at discharge: Pending at discharge 09/18/23 17:22 Surgical [PTH] Routine Discharge Plan Discharge Attending physician on discharge: Tanner Arrieta Discharging Clinician: Tanner Arrieta Patient Disposition: Home, Self-Care Activity: may shower, as tolerated and pelvic rest Diet: as tolerated Patient Instructions: Antibiotic Form Stand Alone Forms: General Discharge Information Follow-up/Referrals: Tanner Arrieta MD [Physician] - 4 Weeks Discharge Medications: Continued PNV [id number] [] 28 mg iron- 800 mcg Tablet 1 tablet PO DAILY Date of admission: 09/17/23 14:01 Primary Care Provider: William,Princess iGles Admitting Provider: Tanner Arrieta Attending physician on admission: Tanner Arrieta Condition: Stable
[2023-09-20] MEDS: MULTIVIT/MIN/PREN/FOL AC/IRON TABLET 1 TAB PO (10:15)
[2023-09-20] MEDS: IBUPROFEN 600 MG TABLET PO (10:16)
--- NOTE | 2023-09-20 11:22 | PC.NURSE ---
Patient viewed the discharge video Mother & Baby Care, The First Two Weeks . Patient was given the opportunity and encouraged to ask questions. Patient verbalized understanding of information shared and has been given the mother/baby guide for home reference.
--- NOTE | 2023-09-20 12:31 | PC.NURSE ---
1110 Mother led the conversation with her experience so far, plan to feed her , and her ability to independently latch optimally without discomfort. Mother breastfed baby and baby was able to latch on without issues. Baby sleepy at times and reminded parents of measures to wake and prepare baby for feeding with skin to skin contact. Reminded mother to use good handwashing technique to prevent infection. Mother is feeding appropriately for growth of infant and understands stimulating to eat if needed. has had appropriate feedings in the last 24 hours meets the outcomes for weight, output, blood sugar and jaundice at this time. Mother states she is confident to continue effectively her at home, when to call for assistance, denies any additional assistance or education at this time. Reinforced understanding of milk production, transition of milk, signs of adequate intake, transition of stool, prevention/relief of engorgement, plugged ducts, mastitis, responsive watching for feeding cues, the different methods of stimulating infant to breastfeed 1-3 hours after the start of the last feeding, community resources, medication information reviewed per [facility] and when to call a provider using the resource of the mom and baby guide. Mother voiced understanding of the education shared. Reported to the Primary RN.
[2023-09-23 11:17] VITALS: BP 124/68; PULSE 91; RESP 18; TEMP 36.8; O2SAT 98
== END 2023-09-20 14:15 | disposition home or self-care (01) | DRG 807 ==
LOC: ANHLDR 09-18 08:45 → ANHOB2 09-18 20:42
PROVIDERS: Admitting Provider Obstetrics & Gynecology; PCP Nurse Practitioner Family; Visit Provider Obstetrics & Gynecology
DX: O36.5930 Maternal care for other known or suspected poor fetal growth, third trimester, not applicable or unspecified (principal); Z37.0 Single live birth; Z3A.38 38 weeks gestation of pregnancy; O99.824 Streptococcus B carrier state complicating childbirth; O69.81X0 Labor and delivery complicated by cord around neck, without compression, not applicable or unspecified; O70.1 Second degree perineal laceration during delivery
CPT/HCPCS: 36415; 85014; 85018; 85025; 86592; 86850; 86900; 86901; 88307; A9270; J0290; J2405; J2590; J2795; J7120